=== PATIENT | male | born 1945 | race Native Hawaiian/Other Pacific Islander ===

== ENCOUNTER 2023-12-03 09:43 | Emergency (ER) | payer MEDICARE, SELFPAY ==
[2023-12-03 09:48] VITALS: BP 130/85; PULSE 86; RESP 18; TEMP 36.5; O2SAT 96; BMI 29.1
[2023-12-03 10:09] LABS: Appearance Urine Clear (Clear); Bilirubin Urine Negative (Negative); Blood Urine Trace-intact (Negative); Color Urine Yellow (Yellow); Glucose Urine 2+ (Negative); Ketones Urine Negative (Negative); Leukocyte Esterase Urine Negative (Negative); Nitrite Urine Negative (Negative); Protein Urine 1+ (Negative); Urobilinogen Urine 0.2 (0.2-1.0); pH Urine 6.5 (5.0-8.5)
[2023-12-03 10:25] LABS: Squamous Epithelial Cell Urine Few (None-Few); WBC Urine 0-2 (0-5)
[2023-12-03 11:23] LABS: Lactate* 1.3 mmol/L (0.5-1.9)
[2023-12-03 11:26] LABS: Basophils Absolute Auto 0.03 K/uL (0.00-0.30); Basophils Percent Auto 0.5 % (0.0-3.0); Eosinophils Absolute Auto 0.26 K/uL (0.00-0.50); Eosinophils Percent Auto 4.4 % (0.0-7.0); Hematocrit 43.6 % (37.0-53.0); Hemoglobin* 14.7 gm/dL (13.5-17.5); Immature Granulocytes Abs Auto 0.03 K/uL (0.00-0.30); Immature Granulocytes Pct Auto 0.5 %; Lymphocytes Absolute Auto 2.44 K/uL (0.90-2.90); Lymphocytes Percent Auto 41.4 % (20-44); Mean Corpuscular HGB Conc 34 gm/dL (32-36); Mean Corpuscular Hemoglobin 28 pg (26-34); Mean Corpuscular Volume 84 fL (80-100); Monocytes Percent Auto 7.5 % (0.0-11.0); Neutrophils Percent Auto 45.7 % (42.0-72.0); Platelet Count* 188 K/uL (140-440); RDW Coefficient of Variation % 12.1 % (11.5-15.5); Red Blood Count 5.18 m/uL (4.30-5.90)
[2023-12-03 11:32] LABS: Slide Review Reflex No
--- NOTE | 2023-12-03 11:43 | ED.GENADULT ---
HPI - General Adult General Chief complaint: Abdominal Pain Stated complaint: UTI Time Seen by Provider: 12/03/23 11:01 Source: patient Mode of arrival: ambulatory Limitations: no limitations History of Present Illness HPI narrative: 78-year-old male coming in today complaining of dysuria and abdominal discomfort going on for 2 days. He has had chills today and yesterday. No measured temperatures. Appetite has been okay. He denies any blood in his urine. He denies any change in color or sent of his urine. He denies nausea or vomiting. Denies penile discharge or testicular pain. Complains of decreased energy. Past medical history significant for diabetes and hypertension. Patient is on lisinopril, metformin and Januvia. Related Data Home Medications ?Medication ?Instructions ?Recorded ?Confirmed lisinopril 10 mg tablet 10 mg PO DAILY 12/03/23 12/03/23 metformin 500 mg tablet 500 mg PO DAILY 12/03/23 12/03/23 sitagliptin phosphate 50 mg tablet 50 mg PO DAILY 12/03/23 12/03/23 (Januvia) Previous Rx's ?Medication ?Instructions ?Recorded ciprofloxacin HCl 500 mg tablet 500 mg PO BID 7 days #14 tabs 12/03/23 Allergies Allergy/AdvReac Type Severity Reaction Status Date / Time No Known Drug Allergies Allergy Verified 12/03/23 12:51 Review of Systems Status of ROS: Reports: 10 or more systems reviewed and unremarkable except as noted in History and below [facility] Social History Smoking Status: Never smoker Do you use any of these nicotine containing products: None How often do you have a drink containing alcohol: never How often do you have six or more drinks on one occasion: Never AUDIT-C Alcohol total score: 0 Non-prescribed substance use: denies use Exam Narrative: Exam Narrative: Overweight, well-developed patient in no acute distress. Alert and oriented. Answers questions appropriately. Mood and affect are appropriate. Thoughts are goal oriented and rational. No tangential or magical thinking noted. Patient speaks in full sentences without needing to catch his breath. HEENT: Normocephalic atraumatic. Pupils are equally round reactive to light. Extraocular muscles are intact. Conjunctivae are moist without any icterus noted. Moist mucous membranes. Posterior pharynx is normal. Neck is soft. Cardiovascular: Heart is regular rate and rhythm S1 and S2 are present without any murmurs. Lungs: Clear to auscultation bilaterally no wheezes rhonchi or rales are appreciated. Patient takes deep breaths without any discomfort. Abdomen: Soft and nondistended with normal bowel sounds. No guarding or rebound. No masses or organomegaly appreciated. He does have significant suprapubic tenderness. He does not have any flank pain. He also has some mild epigastric discomfort. Extremities: Bilateral lower extremities are without edema. Skin: Well perfused without any obvious rashes. Const: Vital Signs, click to edit/add: Vital Signs - 24 hr 12/03/23 09:48 12/03/23 13:00 Temperature 97.7 F Pulse Rate [Right Pulse Oximeter] 86 68 Respiratory Rate 18 18 Blood Pressure [Ri ght Upper Arm] 130/85 153/83 H Pulse Oximetry 96 97 Oxygen Delivery Me thod Room Air Room Air Course Course ED Course: CBC is unremarkable. UA has 1+ protein, 2+ glucose and 2-5 RBCs. Normal lactate at 1.3. Slightly low sodium. Otherwise labs are unremarkable. Given amount of tenderness he is having in the suprapubic area and a fairly normal UA, we did decide to go ahead and do a CT scan. CT scan unremarkable. Discussed results with the patient: At this point we decided to treat him for UTI given his suprapubic discomfort and dysuria and otherwise unremarkable workup. If things are not improving over the next few days I do want him to follow up with his primary care provider. Other differential diagnoses considered include prostatitis, appendicitis, bowel obstruction, pyelonephritis, renal stone. Vital Signs Vital signs: Initial Vital Signs Temperature 97.7 F 12/03/23 09:48 Temperature Source Temporal Artery Scan 12/03/23 09:48 Pulse Rate 86 12/03/23 09:48 Pulse Rhythm Regular 12/03/23 09:48 Respiratory Rate 18 12/03/23 09:48 Blood Pressure 130/85 12/03/23 09:48 Blood Pressure Mean 100 12/03/23 09:48 Blood Pressure Position Sitting 12/03/23 09:48 Pulse Oximetry 96 12/03/23 09:48 Oxygen Delivery Method Room Air 12/03/23 09:48 Vital Signs Temperature 97.7 F 12/03/23 09:48 Pulse Rate 86 12/03/23 09:48 Respiratory Rate 18 12/03/23 09:48 Blood Pressure 130/85 12/03/23 09:48 Pulse Oximetry 96 12/03/23 09:48 Oxygen Delivery Method Room Air 12/03/23 09:48 Temperature 97.7 F 12/03/23 09:48 Pulse Rate 68 12/03/23 13:00 Respiratory Rate 18 12/03/23 13:00 Blood Pressure 153/83 H 12/03/23 13:00 Pulse Oximetry 97 12/03/23 13:00 Oxygen Delivery Method Room Air 12/03/23 13:00 Medications Administered Medications: Discontinued Medications Generic Name Dose Route Start Last Admin Trade Name Freq PRN Reason Stop Dose Admin Acetaminophen 650 mg 12/03/23 12:25 12/03/23 12:50 Acetaminophen 325 Mg Tablet PO 12/03/23 12:26 650 mg ONCE ONE Administration Medical Decision Making MDM Narrative Medical decision making narrative: 78-year-old male with suprapubic pain and dysuria, probable UTI. Will treat with ciprofloxacin twice a day for a week. Lab Data Lab results reviewed: Yes I reviewed the patient's lab results Labs: Lab Results 12/03/23 12/03/23 Range/Units 10:05 11:17 WBC 5.90 (4.50-11.00) K/uL RBC 5.18 (4.30-5.90) m/uL Hgb 14.7 (13.5-17.5) gm/dL Hct 43.6 (37.0-53.0) % MCV 84 (80-100) fL MCH 28 (26-34) pg MCHC 34 (32-36) gm/dL RDW Coeff of Arelis 12.1 (11.5-15.5) % Plt Count 188 (140-440) K/uL Neut % (Auto) 45.7 (42.0-72.0) % Lymph % (Auto) 41.4 (20-44) % [place] % (Auto) 7.5 (0.0-11.0) % Eos % (Auto) 4.4 (0.0-7.0) % Baso % (Auto) 0.5 (0.0-3.0) % Neut # (Auto) 2.70 (1.7-7.0) K/uL Lymph # (Auto) 2.44 (0.90-2.90) K/uL [place] # (Auto) 0.40 (0.00-0.90) K/UL Eos # (Auto) 0.26 (0.00-0.50) K/uL Baso # (Auto) 0.03 (0.00-0.30) K/uL Abs Immat Gran (auto) 0.03 (0.00-0.30) K/uL Imm/Tot Granulo (auto) 0.5 % Sodium 131 L (135-149) mmol/L Potassium 4.3 (3.6-5.1) mmol/L Chloride 100 (96-114) mmol/L Carbon Dioxide 23 (20-32) mmol/L Anion Gap 8 (7-15) mEq/L BUN 16 (7-30) mg/dL Creatinine 0.8 (0.5-1.5) mg/dL Estimated Creat Clear 54.67 Estimated GFR 92 ml/min Glucose 340 H (60-115) mg/dL Lactate 1.3 (0.5-1.9) mmol/L Calcium 9.7 (8.4-10.6) mg/dL Total Bilirubin 0.5 (0.1-1.5) mg/dL Direct Bilirubin 0.2 (0.0-0.5) mg/dL AST 26 (12-35) U/L ALT 21 (4-50) U/L Alkaline Phosphatase 78 (40-150) U/L C-Reactive Protein 0.5 (0.5-1.0) mg/dL Total Protein 7.6 (6.0-8.3) g/dL Albumin 4.3 (3.3-5.0) g/dL Lipase 190 (23-300) U/L Urine Color Yellow (Yellow) Urine Appearance Clear (Clear) Urine pH 6.5 (5.0-8.5) Ur Specific [place] 1.020 (1.000-1.030) Urine Protein 1+ A (Negative) Urine Glucose (UA) 2+ A (Negative) Urine Ketones Negative (Negative) Urine Blood Trace-intact A (Negative) Urine Nitrite Negative (Negative) Urine Bilirubin Negative (Negative) Urine Urobilinogen 0.2 (0.2-1.0) Ur Leukocyte Esterase Negative (Negative) Urine RBC 2-5 A (0-2) Urine WBC 0-2 (0-5) Ur Squamous Epith Cells Few (None-Few) Urine Bacteria None (None) Imaging Data CT Chest/Ab/Pelvis: Attestation: I have reviewed the pertinent imaging results. Radiologist's impression: CT of the abdomen and pelvis with 85 cc of Isovue 370 intravenous contrast. Please note that all CT scans at this facility use dose modulation, iterative reconstruction, and/or weight-based dosing when appropriate to reduce radiation dose to as low as reasonably achievable. FINDINGS: ABDOMEN Liver: Normal hepatic attenuation. No suspicious focal hepatic lesion. No intrahepatic biliary ductal dilatation. Patent portal and hepatic veins. Gallbladder: Cholelithiasis. Normal common duct caliber. No pericholecystic inflammatory changes. Pancreas: Normal pancreatic attenuation. No focal lesion. Normal duct caliber. No peripancreatic inflammatory changes. Spleen: Normal splenic attenuation. No suspicious focal lesion. Patent splenic artery and vein. Adrenal Glands: Symmetrical adrenal glands. No focal lesion of significance. Kidneys: Normal bilateral renal attenuation. No suspicious focal lesion. No obstructing nephrolith or dilatation of the intrarenal collecting systems. Patent renal arteries and veins. Nondilated upper urinary tracts. Gastrointestinal tract: Normal caliber, attenuation and wall thickness of the gastrointestinal tract. No inflammatory changes. Normal mesentery. Normal appendix. Vascular: Moderate aortoiliac atherosclerotic calcification. Abdominal aorta and its major proximal branches including the celiac, superior mesenteric, inferior mesenteric, renal, and bilateral common iliac arteries are patent. Inferior vena cava, portal and superior mesenteric veins are patent. Common hepatic and splenic arteries arise independently from the abdominal aorta. Additional findings: No incidental adenopathy. No significant ascites, free fluid or pneumoperitoneum. PELVIS No bladder lesion is identified. No significant incidental findings related to the prostate and seminal vesicles. No abnormal free fluid. No incidental adenopathy. SKELETON AND BODY WALL No acute or suspicious incidental findings. LOWER THORAX Partially included lower thoracic wall, lungs, pleural spaces and mediastinum are otherwise without significant incidental findings. IMPRESSION: No imaging findings to explain the clinical history. Discharge Plan Discharge Clinical Impression: Acute UTI Patient Disposition: Home, Self-Care Condition: Stable Additional Instructions: Take all antibiotics as prescribed. If you are not improving over the next 48-72 hours, you should follow-up with your primary care provider. Okay to take Tylenol as needed for discomfort. Prescriptions: New ciprofloxacin HCl 500 mg tablet 500 mg PO BID 7 Days Qty: 14 0RF No Action lisinopril 10 mg tablet 10 mg PO DAILY metformin 500 mg tablet 500 mg PO DAILY Januvia 50 mg tablet 50 mg PO DAILY Follow Up/Referrals: Provider,Not a Local [Primary Care Provider] - Stand Alone Forms: [employer] Info Instructions
[2023-12-03 11:47] LABS: Albumin* 4.3 g/dL (3.3-5.0); Chloride* 100 mmol/L (96-114)
[2023-12-03 11:48] LABS: Potassium* 4.3 mmol/L (3.6-5.1); Sodium* 131 mmol/L (135-149)
[2023-12-03 11:50] LABS: Creatinine* 0.8 mg/dL (0.5-1.5); Est. Creatinine Clearance* 54.67; Estimated Glomerular Filt Rate 92 ml/min
[2023-12-03 11:51] LABS: Alanine Aminotransferase* 21 U/L (4-50); Alkaline Phosphatase* 78 U/L (40-150); Anion Gap 8 mEq/L (7-15); Aspartate Amino Transferase* 26 U/L (12-35); Bilirubin Direct* 0.2 mg/dL (0.0-0.5); Bilirubin Total* 0.5 mg/dL (0.1-1.5); Blood Urea Nitrogen* 16 mg/dL (7-30); Carbon Dioxide* 23 mmol/L (20-32); Glucose* 340 mg/dL (60-115); Lipase* 190 U/L (23-300); Total Protein* 7.6 g/dL (6.0-8.3)
[2023-12-03 11:52] LABS: Calcium* 9.7 mg/dL (8.4-10.6)
[2023-12-03 11:54] LABS: C Reactive Protein* 0.5 mg/dL (0.5-1.0)
--- NOTE | 2023-12-03 12:04 | CRLHL7_ITS ---
For Patients: As a result of the Century Cures Act, medical imaging exams and procedure reports are released immediately into your electronic medical record. You may view this report before your referring provider. If you have questions, please contact your health care provider. INDICATION: Suprapubic pain. COMPARISON: None available. TECHNIQUE: CT of the abdomen and pelvis with 85 cc of Isovue 370 intravenous contrast. Please note that all CT scans at this facility use dose modulation, iterative reconstruction, and/or weight-based dosing when appropriate to reduce radiation dose to as low as reasonably achievable. FINDINGS: ABDOMEN Liver: Normal hepatic attenuation. No suspicious focal hepatic lesion. No intrahepatic biliary ductal dilatation. Patent portal and hepatic veins. Gallbladder: Cholelithiasis. Normal common duct caliber. No pericholecystic inflammatory changes. Pancreas: Normal pancreatic attenuation. No focal lesion. Normal duct caliber. No peripancreatic inflammatory changes. Spleen: Normal splenic attenuation. No suspicious focal lesion. Patent splenic artery and vein. Adrenal Glands: Symmetrical adrenal glands. No focal lesion of significance. Kidneys: Normal bilateral renal attenuation. No suspicious focal lesion. No obstructing nephrolith or dilatation of the intrarenal collecting systems. Patent renal arteries and veins. Nondilated upper urinary tracts. Gastrointestinal tract: Normal caliber, attenuation and wall thickness of the gastrointestinal tract. No inflammatory changes. Normal mesentery. Normal appendix. Vascular: Moderate aortoiliac atherosclerotic calcification. Abdominal aorta and its major proximal branches including the celiac, superior mesenteric, inferior mesenteric, renal, and bilateral common iliac arteries are patent. Inferior vena cava, portal and superior mesenteric veins are patent. Common hepatic and splenic arteries arise independently from the abdominal aorta. Additional findings: No incidental adenopathy. No significant ascites, free fluid or pneumoperitoneum. PELVIS No bladder lesion is identified. No significant incidental findings related to the prostate and seminal vesicles. No abnormal free fluid. No incidental adenopathy. SKELETON AND BODY WALL No acute or suspicious incidental findings. LOWER THORAX Partially included lower thoracic wall, lungs, pleural spaces and mediastinum are otherwise without significant incidental findings. IMPRESSION: No imaging findings to explain the clinical history. Please note that all CT scans at this facility use dose modulation, iterative reconstruction, and/or weight-based dosing when appropriate to reduce radiation dose to as low as reasonably achievable. Dictated by Neville Cedillo MD @ 12/03/2023 1:03:48 PM (Electronically Signed)
[2023-12-03] MEDS: ACETAMINOPHEN 325 MG TABLET 650 MG PO (12:50)
[2023-12-03 13:00] VITALS: BP 153/83; PULSE 68; RESP 18; O2SAT 97
== END 2023-12-03 13:50 | disposition home or self-care (01) ==
PROVIDERS: Emergency Provider Family Medicine
DX: N39.0 Urinary tract infection, site not specified (principal)
CPT/HCPCS: 36415; 74177; 80048; 80076; 81001; 83605; 83690; 85025; 86140; 99284; A9270; Q9967